=== PATIENT | male | born 1970 | race Caucasian/White ===

== ENCOUNTER 2019-11-28 13:29 | Emergency (ER) | payer OTHER ==
[~2019-11-28] VITALS: Ht 185.4 cm; Wt 135.3 kg
[~2019-11-28 13:29] MED LIST: AMOX-291 PO; IBUP200T49 PO; LEVO500T8 PO; LISD50CA3 PO; LISI-170 PO; OMEP-110 PO; PROP10TA16 PO; SERT100T PO; SERT50TA PO
--- NOTE | 2019-11-28 13:58 | NUR ---
PT. IS A & O X 4 WITH A GCS OF 15. PT. HAS C/O RIGHT SIDED FACIAL NUMBNESS SINCE MONDAY, 5 DAYS AGO. PT. HAS A HX OF LEFT FACIAL PARALYSIS AND IS UNABLE TO FULLY CLOSE HIS LEFT EYE. HAND GRASPS ARE EQUAL AND STRONG WELL HE HIS DP PUSH/PULL. PUPILS ARE PERRLA. LUNGS ARE CTA. S1 S2 NOTED WITHOUT MURMURS, RUBS OR GALLOPS. PT.'S ABD. IS SOFT AND FLAT WITH BS + X 4 QUADS. PT.'S PULSES ARE + 2 THROUGHOUT. PT. IS PINK, WARM AND DRY. CAP REFILL IS BRISK, LESS THAN 3 SECONDS. PT. HAS TRACE EDEMA NOTED IN HIS LOWER EXTREMITIES. NO LIMB DRIFTS, ATAXIA, NUMBNESS OR PARAESTHESIA NOTED IN HIS EXTREMITIES.
[2019-11-28 15:04] VITALS: BP 124/66
== END 2019-11-28 15:48 | disposition home or self-care (01) ==
LOC: ED 14:51
DX: R20.2 Paresthesia of skin (principal); I10 Essential (primary) hypertension; G51.0 Bell's palsy
CPT/HCPCS: 70450; 99284